=== PATIENT | female | born 1965 | race Caucasian/White ===

== ENCOUNTER 2018-12-24 09:25 | Emergency (ER) | payer OTHER ==
[~2018-12-24] VITALS: Ht 165.1 cm; Wt 61.2 kg
[2018-12-24 09:29] VITALS: BP 146/89
[2018-12-24] MEDS ORDERED: ONDANSETRON 4 MG TAB.RAPDIS ONE (09:38)
[2018-12-24] MEDS ORDERED: ONDANSETRON 4 MG TAB.RAPDIS SL ONE (10:00)
== END 2018-12-24 09:42 ==
LOC: ER 09:25
DX: F11.23 Opioid dependence with withdrawal (principal); F32.9 Major depressive disorder, single episode, unspecified
CPT/HCPCS: 99283; Q0162